=== PATIENT | female | born 1975 ===

== ENCOUNTER 2024-07-05 00:10 | Emergency (ER) | payer BC ==
[2024-07-05] MEDS ORDERED: traMADol 50 MG Tab PO ONE (00:11)
[2024-07-05] MEDS ORDERED: predniSONE 20 MG Tab PO ONE (00:11)
[2024-07-05 00:41] VITALS: BP 132/57; PULSE 78
== END 2024-07-05 01:20 | disposition home or self-care (01) ==
LOC: FB.ED 00:10
DX: M75.51 Bursitis of right shoulder (principal); Z88.5 Allergy status to narcotic agent; Z79.899 Other long term (current) drug therapy
CPT/HCPCS: 99283; A9270; J7512